=== PATIENT | male | born 1955 | race Caucasian/White ===

== ENCOUNTER 2018-05-21 14:01 | Emergency (ER) | payer OTHER ==
[~2018-05-21] VITALS: Ht 182.9 cm; Wt 108.9 kg
[~2018-05-21 14:01] MED LIST: AZITHROMYCIN 2250 MG PO; CARDIZEM CD 30300 M1 PO; CARDIZEM CD240 MG PO; CEFTIN500 MG PO; DELTASONE20 MG PO; ELIQUIS5 MG PO; GLUCOPHAGE500 MG PO; MUCUS ER600 M1 PO; NO HOME MEDS; PREDNISONE 10 M10 MG PO; PROAIR HFA8.5 GM INH; PROPAFENONE 15150 MG PO; TESSALON PERLE100 MG PO; VENTOLIN HFA 1818 GM INH
[2018-05-21] MEDS ORDERED: ZANAFLEX4 MG PO (15:57)
[2018-05-21] MEDS ORDERED: CIPROFLOXIN HC2.5 M1 OPHTHALMIC (16:10)
[2018-05-21 16:18] VITALS: BP 161/78
== END 2018-05-21 16:19 | disposition home or self-care (01) ==
LOC: M.ERS 14:01
DX: S16.1XXA Strain of muscle, fascia and tendon at neck level, initial encounter (principal); S29.012A Strain of muscle and tendon of back wall of thorax, initial encounter; S39.012A Strain of muscle, fascia and tendon of lower back, initial encounter; S05.02XA Injury of conjunctiva and corneal abrasion without foreign body, left eye, initial encounter; E78.5 Hyperlipidemia, unspecified; I48.91 Unspecified atrial fibrillation; V89.2XXA Person injured in unspecified motor-vehicle accident, traffic, initial encounter; Y93.89 Activity, other specified; Y92.89 Other specified places as the place of occurrence of the external cause; Y99.8 Other external cause status

== ENCOUNTER → 2018-09-21 | Outpatient (CLI) | payer OTHER ==
[~2018-09-21] MED LIST changes: +CIPROFLOXIN HC2.5 M1 OPHTHALMIC; +ZANAFLEX4 MG PO
--- NOTE | 2018-09-21 13:36 | 2DMMODE ---
[place] [address] 2 D/M-MODE ECHOCARDIOGRAM Name: REMYVIMAL Anthony Room: [facility]#: [id number] Admission: 09/21/18 Attend Phys: Michelle Cheung Discharge: Date of : 51 Date of Service: 09/21/18 1336 Report #: [id number] THIS REPORT FOR: //name// APPROVED REPORT Study performed: 09/21/2018 11:01:56 EXAM: Comprehensive 2D, Doppler, and color-flow Echocardiogram Patient Location: Out-Patient BSA: 2.27 HR: 70 bpm BP: 132/80 mmHg Other Information Study Quality: Good Indications Atrial Fibrillation 2D Dimensions IVSd: 10.99 (7-11mm) LVOT Diam: 20.88 (18-24mm) LVDd: 48.37 mm PWd: 10.65 (7-11mm) Ascending Ao: 32.49 (22-36mm) LVDs: 30.48 (25-40mm) Aortic Root: 32.47 mm Volumes Left Atrial Volume (Systole) LA ESV Index: 25.00 mL/m2 Aortic Valve AoV Peak John.: 1.09 m/s AO Peak Gr.: 4.73 mmHg LVOT Max P.79 mmHg AO Mean Gr.: 2.59 mmHg LVOT Mean P.66 mmHg LVOT Max V: 0.97 m/s AO V2 VTI: 19.95 cm LVOT Mean V: 0.58 m/s RACHEL (VTI): 3.37 cm2 LVOT V1 VTI: 19.63 cm Mitral Valve E/A Ratio: 1.43 MV Decel. Time: 182.33 ms MV E Max John.: 1.08 m/s MV PHT: 52.88 ms MVA (PHT): 4.16 [place]2 [place] [address] 2 D/M-MODE ECHOCARDIOGRAM Name: REMYVIMAL L Room: [facility]#: [id number] Admission: 09/21/18 Attend Phys: Michelle Cheung Discharge: Date of : 51 Date of Service: 09/21/18 1336 Report #: [id number] TDI E/Lateral E': 7.71 E/Medial E': 8.31 Medial E' John.: 0.13 m/s Lateral E' John.: 0.14 m/s Pulmonary Valve PV Peak John.: 1.05 m/s PV Peak Gr.: 4.45 mmHg Tricuspid Valve RAP Estimate: 5.00 mmHg TR Peak Gr.: 26.69 mmHg RVSP: 31.69 mmHg PA Pressure: 31.69 mmHg Left Ventricle The left ventricle is normal size. There is normal LV segmental wall motion. There is normal left ventricular wall thickness. Left ventricular systolic function is normal. The left ventricular ejection fraction is within the normal range. LVEF is 55-60%. The left ventricular diastolic function is normal. Right Ventricle The right ventricle is normal size. The right ventricular systolic function is normal. Atria The left atrium size is normal. The right atrium size is normal. Aortic Valve Mild aortic valve sclerosis. No aortic regurgitation is present. There is no aortic valvular stenosis. Mitral Valve The mitral valve is normal in structure. Mild mitral regurgitation. No evidence of mitral valve stenosis. Tricuspid Valve The tricuspid valve is normal in structure. Mild tricuspid regurgitation. estimate pa pressure 35 mm Hg Pulmonic Valve The pulmonary valve is normal in structure. There is no pulmonic valvular regurgitation[place] [address] 2 D/M-MODE ECHOCARDIOGRAM Name: VIMAL ALBERTO Room: [facility]#: [id number] Admission: 09/21/18 Attend Phys: Michelle Cheung Discharge: Date of : 51 Date of Service: 09/21/18 1336 Report #: [id number] The aortic root is normal in size. IVC is normal in size and collapses >50% with inspiration. Pericardium There is no pericardial effusion. <Conclusion> Left ventricular systolic function is normal. The left ventricular ejection fraction is within the normal range. <ELECTRONICALLY SIGNED> By: Elder Cardenas MD, FAC 09/21/18 1336 1336 1336 Elder Cardenas MD, FAC /INF
== END ==
LOC: M.CRD 10:44
DX: I08.3 Combined rheumatic disorders of mitral, aortic and tricuspid valves (principal); I48.0 Paroxysmal atrial fibrillation

== ENCOUNTER 2019-11-08 14:51 | Emergency (ER) | payer OTHER ==
[~2019-11-08] VITALS: Ht 182.9 cm; Wt 104.3 kg
[2019-11-08] MEDS ORDERED: [UNRECOGNIZED DRUG - OTHER] (15:07)
[2019-11-08] MEDS ORDERED: NORCO 5-325 TA1 EAC1 PO (16:55)
[2019-11-08] MEDS ORDERED: KEFLEX500 M1 PO (16:55)
[2019-11-08 17:07] VITALS: BP 133/73
== END 2019-11-08 17:08 | disposition home or self-care (01) ==
LOC: M.ERS 14:51
DX: S60.222A Contusion of left hand, initial encounter (principal); E78.5 Hyperlipidemia, unspecified; I48.91 Unspecified atrial fibrillation; Z98.890 Other specified postprocedural states; W23.0XXA Caught, crushed, jammed, or pinched between moving objects, initial encounter; Y93.89 Activity, other specified; Y92.413 State road as the place of occurrence of the external cause; Y99.9 Unspecified external cause status

== ENCOUNTER → 2020-11-01 | Outpatient (CLI) | payer OTHER ==
[~2020-11-01] MED LIST changes: +KEFLEX500 M1 PO; +NORCO 5-325 TA1 EAC1 PO; +[UNRECOGNIZED DRUG - OTHER]
--- NOTE | 2020-11-01 12:08 | 2DMMODE ---
[place] [address] 2 D/M-MODE ECHOCARDIOGRAM Name: VIMAL ALBERTO Room: [facility]#: [id number] Admission: 11/01/20 Attend Phys: Michelle Cheung Discharge: Date of : 51 Date of Service: 11/01/20 1207 Report #: [id number] THIS REPORT FOR: cc: Lauryn Rocha Maggie M. DO Blick,Elder Linares MD [facility] ~ APPROVED REPORT Study performed: 11/01/2020 10:47:02 EXAM: Comprehensive 2D, Doppler, and color-flow Echocardiogram Patient Location: Out-Patient BSA: 2.22 HR: 63 bpm BP: 128/65 mmHg Other Information Study Quality: Good Indications Atrial Fibrillation 2D Dimensions IVSd: 10.01 (7-11mm) LVOT Diam: 20.22 (18-24mm) LVDd: 45.63 mm PWd: 9.69 (7-11mm) Ascending Ao: 30.76 (22-36mm) LVDs: 27.56 (25-40mm) Aortic Root: 32.80 mm Volumes Left Atrial Volume (Systole) LA ESV Index: 20.30 mL/m2 Aortic Valve AoV Peak John.: 1.43 m/s AO Peak Gr.: 8.18 mmHg LVOT Max P.57 mmHg AO Mean Gr.: 4.45 mmHg LVOT Mean P.53 mmHg LVOT Max V: 0.95 m/s AO V2 VTI: 29.84 cm LVOT Mean V: 0.55 m/s RACHEL (VTI): 2.03 cm2 LVOT V1 VTI: 18.82 cm Mitral Valve E/A Ratio: 1.20 [place] [address] 2 D/M-MODE ECHOCARDIOGRAM Name: VIMAL ALBERTO Room: [facility]#: [id number] Admission: 11/01/20 Attend Phys: Michelle Cheung Discharge: Date of : 51 Date of Service: 11/01/20 1207 Report #: [id number] MV Decel. Time: 196.83 ms MV E Max John.: 0.84 m/s MV PHT: 57.08 ms MVA (PHT): 3.85 cm2 TDI E/Lateral E': 6.00 E/Medial E': 7.64 Medial E' John.: 0.11 m/s Lateral E' John.: 0.14 m/s Pulmonary Valve PV Peak John.: 0.89 m/s PV Peak Gr.: 3.16 mmHg Tricuspid Valve RAP Estimate: 5.00 mmHg TR Peak Gr.: 26.27 mmHg RVSP: 31.27 mmHg PA Pressure: 31.27 mmHg Left Ventricle The left ventricle is normal size. There is normal LV segmental wall motion. There is normal left ventricular wall thickness. Left ventricular systolic function is normal. The left ventricular ejection fraction is within the normal range. LVEF is 55-60%. The left ventricular diastolic function is normal. Right Ventricle The right ventricle is normal size. The right ventricular systolic function is normal. Atria The left atrium size is normal. The right atrium size is normal. Aortic Valve Mild aortic valve sclerosis. No aortic regurgitation is present. There is no aortic valvular stenosis. Mitral Valve The mitral valve is normal in structure. Mild mitral regurgitation. No evidence of mitral valve stenosis. Tricuspid Valve The tricuspid valve is normal in structure. Mild tricuspid regurgitation[place] [address] 2 D/M-MODE ECHOCARDIOGRAM Name: VIMAL ALBERTO Room: [facility]#: [id number] Admission: 11/01/20 Attend Phys: Michelle Cheung Discharge: Date of : 51 Date of Service: 11/01/20 1207 Report #: [id number] The pulmonary valve is normal in structure. There is no pulmonic valvular regurgitation. Great Vessels The aortic root is normal in size. IVC is normal in size and collapses >50% with inspiration. Pericardium There is no pericardial effusion. <Conclusion> LVEF is 55-60%. Mild aortic valve sclerosis. Mild mitral regurgitation. <ELECTRONICALLY SIGNED> By: Elder Cardenas MD, [facility] 11/01/201206 06 06 Elder Cardenas MD, FAC /INF
== END ==
LOC: M.CRD 10:54
PROVIDERS: ATTEND Internal Medicine
DX: I08.3 Combined rheumatic disorders of mitral, aortic and tricuspid valves (principal); I48.0 Paroxysmal atrial fibrillation; I50.9 Heart failure, unspecified; R06.00 Dyspnea, unspecified